=== PATIENT | female | born 1960 | race Caucasian/White ===

== ENCOUNTER 2019-01-01 10:30 | Emergency (ER) | payer OTHER ==
[2019-01-01] MEDS ORDERED: Albuterol/Ipratropium 3.0-0.5 MG/3 ML Neb Soln NEB PRN (11:29)
[2019-01-01] MEDS ORDERED: Dexamethasone 10 MG/ML SDV IV ONE (11:31)
[2019-01-01] MEDS ORDERED: Codeine/Promethazine 10-6.25 MG/5 ML Syrup 5 ML UD Cup PO STA (11:32)
--- NOTE | 2019-01-01 12:40 | EDM.PDOC ---
ED HPI GENERAL MEDICAL PROBLEM - General Chief Complaint: Respiratory Problem Stated Complaint: SEVERE COUGH,CHEST PAIN,NOSE BLEED Time Seen by Provider: 01/01/19 10:58 Chest Pain Score (Numeric/FACES): 6 - Related Data Allergies Allergy/AdvReac Type Severity Reaction Status Date / Time acetaminophen [From Lortab] Allergy Vomiting Verified 01/01/19 10:51 cefaclor [From Ceclor] Allergy Hives Verified 01/01/19 10:51 duloxetine Allergy Agitation Verified 01/01/19 10:51 fluoxetine [From Prozac] Allergy Agitation Verified 01/01/19 10:51 gabapentin Allergy Hives Verified 01/01/19 10:51 hydrocodone [From Lortab] Allergy Vomiting Verified 01/01/19 10:51 meloxicam Allergy Anaphylactic Verified 01/01/19 10:51 Shock oxycodone Allergy Vomiting Verified 01/01/19 10:51 quinine Allergy Hives Verified 01/01/19 10:51 sulfamethoxazole Allergy Hives Verified 01/01/19 10:51 trimethoprim [From Bactrim] Allergy Hives Verified 01/01/19 10:51 hop oils Allergy Anaphylactic Uncoded 01/01/19 10:51 Shock Home Meds: Home Meds ALPRAZolam [Alprazolam] 0.5 mg PO TID PRN 01/01/19 [History] Albuterol Sulfate [Albuterol Sulfate Hfa] 8.5 gm IH Q4HR PRN 5 Days #1 hfa.aer.ad 01/01/19 [Rx] Codeine/Promethazine [Phenergan with Codeine] 5 ml PO Q4HR PRN 7 Days #100 cup 01/01/19 [Rx] Lisinopril 1 tab PO DAILY 01/01/19 [History] Methocarbamol [Robaxin] 1 tab PO ASDIRECTED PRN 01/01/19 [History] Prazosin [Minpress] 1 tab PO BEDTIME PRN 01/01/19 [History] Ranitidine HCl [Zantac] 150 mg PO DAILY 01/01/19 [History] Thyroid,Pork [Wp Thyroid] 1 tab PO DAILY 01/01/19 [History] Vitamin D3/Vitamin K2 (Mk4) [K2 Plus D3 Tablet] 1 tab PO DAILY 01/01/19 [History ] Past Medical History Cardiovascular History: Reports: Hypertension Respiratory History: Reports: Pneumonia, Recurrent, Sleep Apnea Gastrointestinal History: Reports: Other (See Below) Other Gastrointestinal History: Yancey's esophagus Musculoskeletal History: Reports: Arthritis, Back Pain, Chronic, Fibromyalgia, Other (See Below) Other Musculoskeletal History: chronic pain syndrome, cervical spine disorder, carpal tunnel Psychiatric History: Reports: Anxiety Endocrine/Metabolic History: Reports: Hypothyroidism - Past Surgical History Musculoskeletal Surgical History: Reports: Hip Replacement, Knee Replacement Social & Family History - Tobacco Use Smoking Status *Q: Former Smoker Used Tobacco, but Quit: Yes Month/Year Tobacco Last Used: 27 years ago - Caffeine Use Caffeine Use: Reports: None - Recreational Drug Use Recreational Drug Use: No ED ROS GENERAL - Review of Systems Review Of Systems: See Below Constitutional: Reports: Fever, Chills HEENT: Reports: Glasses Respiratory: Reports: Wheezing, Cough Cardiovascular: Denies: Chest Pain Endocrine: Reports: Fatigue GI/Abdominal: Reports: No Symptoms : Reports: No Symptoms Musculoskeletal: Reports: No Symptoms Skin: Reports: No Symptoms Neurological: Reports: No Symptoms, Change in Speech Hematologic/Lymphatic: Reports: No Symptoms ED EXAM, GENERAL - Physical Exam Exam: See Below General Appearance: Alert, WD/WN, No Apparent Distress Ears: Normal External Exam, Normal Canal, Hearing Grossly Normal, Normal TMs Throat/Mouth: Normal Inspection, Normal Lips, Normal Teeth, Normal Gums, Normal Voice, No Airway Compromise, Inflammation Neck: Normal Inspection, Supple, Non-Tender, Lymphadenopathy (R) Course - Vital Signs Last Recorded V/S: Last Vital Signs Temp 98.4 F 01/01/19 10:46 Pulse 85 01/01/19 10:46 Resp 20 01/01/19 10:46 BP 131/71 01/01/19 10:46 Pulse Ox 97 01/01/19 11:34 - Orders/Labs/Meds Orders: Active Orders 24 hr Category Date Time Status RT Aerosol Therapy [RC] ASDIRECTED Care 01/01/19 11:29 Active Chest 2V [CR] Stat Exams 01/01/19 11:24 Taken CULTURE STREP A CONFIRMATION [RM] Stat Lab 01/01/19 11:00 Results STREP SCRN A RAPID W CULT CONF [RM] Stat Lab 01/01/19 11:00 Results Albuterol/Ipratropium [DuoNeb 3.0-0.5 MG/3 ML] Med 01/01/19 11:29 Active 3 ml NEB Q2H PRN Medication Orders Albuterol/Ipratropium (Duoneb 3.0-0.5 Mg/3 Ml) 3 ml NEB Q2H PRN PRN Reason: Cough Stop: 01/01/19 22:00 Last Admin: 01/01/19 11:34 Dose: 3 ml Labs: Laboratory Tests 01/01/19 01/01/19 Range/Units 11:35 11:35 WBC 7.88 (3.98-10.04) K/mm3 RBC 4.20 (3.98-5.22) M/mm3 Hgb 12.0 (11.2-15.7) gm/L Hct 36.1 (34.1-44.9) % MCV 86.0 (79.4-94.8) fl MCH 28.6 (25.6-32.2) pg MCHC 33.2 (32.2-35.5) g/dl RDW Std Deviation 41.9 (36.4-46.3) fL Plt Count 141 L (182-369) K/mm3 MPV 10.6 (9.4-12.3) fl Neut % (Auto) 73.0 H (34.0-71.1) % Lymph % (Auto) 18.8 L (19.3-51.7) % [place] % (Auto) 7.7 (4.7-12.5) % Eos % (Auto) 0.4 L (0.7-5.8) Baso % (Auto) 0.1 (0.1-1.2) % Neut # (Auto) 5.75 (1.56-6.13) K/mm3 Lymph # (Auto) 1.48 (1.18-3.74) K/mm3 [place] # (Auto) 0.61 H (0.24-0.36) K/mm3 Eos # (Auto) 0.03 L (0.04-0.36) K/mm3 Baso # (Auto) 0.01 (0.01-0.08) K/mm3 Sodium 140 (136-145) mEq/L Potassium 4.5 (3.5-5.1) mEq/L Chloride 107 (98-107) mEq/L Carbon Dioxide 24 (21-32) mEq/L Anion Gap 13.5 (5-15) BUN 13 (7-18) mg/dL Creatinine 1.0 (0.55-1.02) mg/dL Est Cr Clr Drug Dosing 67.93 mL/min Estimated GFR (MDRD) 57 (>60) mL/min BUN/Creatinine Ratio 13.0 L (14-18) Glucose 130 H (74-106) mg/dL Calcium 9.1 (8.5-10.1) mg/dL Total Bilirubin 0.9 (0.2-1.0) mg/dL AST 20 (15-37) U/L ALT 38 (14-59) U/L Alkaline Phosphatase 75 (46-116) U/L Total Protein 6.7 (6.4-8.2) g/dl Albumin 3.4 (3.4-5.0) g/dl Globulin 3.3 gm/dL Albumin/Globulin Ratio 1.0 (1-2) Meds: Medications Generic Name Dose Route Start Last Admin Trade Name Freq PRN Reason Stop Dose Admin Albuterol/Ipratropium 3 ml 01/01/19 11:29 01/01/19 11:34 Duoneb 3.0-0.5 Mg/3 Ml NEB 01/01/19 22:00 3 ml Q2H PRN Administration Cough Discontinued Medications Generic Name Dose Route Start Last Admin Trade Name Freq PRN Reason Stop Dose Admin Dexamethasone 10 mg 01/01/19 11:31 01/01/19 11:51 Dexamethasone IV 01/01/19 11:32 10 mg ONETIME ONE Administration Promethazine HCl/Codeine 10 ml 01/01/19 11:32 01/01/19 11:53 Phenergan With Codeine PO 01/01/19 11:33 10 ml Q4HR STA Administration - Re-Assessments/Exams Free Text/Narrative Re-Assessment/Exam: 01/01/19 12:00 WBC 7.88 RBC 4.2 serial hemoglobin and hematocrit 12 and 36.1 platelet count 141 strep screen negative 01/01/19 12:40 Chest x-ray was unremarkable. She reports feeling better after breathing treatment and cough syrup. Breath sounds are diminished no wheezing noted. I will discharge home with Albuterol and Phenergan with Codeine for cough. I instructed her not to take cough medication and drink, drive or operate machinery. I instructed her to follow up with her PCP. Instructed to return to the ER for any new or acute worsening symptoms. She verbalized understanding and is comfortable with plan for discharge. Departure - Departure Time of Disposition: 12:43 Disposition: Admitted As Inpatient 68 Condition: Good Clinical Impression: Bronchitis - Discharge Information *PRESCRIPTION DRUG MONITORING PROGRAM REVIEWED*: Not Applicable *COPY OF PRESCRIPTION DRUG MONITORING REPORT IN PATIENT SABINE: Not Applicable Prescriptions: Albuterol Sulfate [Albuterol Sulfate Hfa] 8.5 gm IH Q4HR PRN 5 Days #1 hfa.aer.ad PRN Reason: Cough Codeine/Promethazine [Phenergan with Codeine] 5 ml PO Q4HR PRN 7 Days #100 cup PRN Reason: Cough Instructions: Acute Bronchitis, Adult, [id number] Referrals: PCP,Not In Area [Primary Care Provider] - Forms: ED Department Discharge - My Orders Last 24 Hours: My Active Orders 01/01/19 11:00 CULTURE STREP A CONFIRMATION [RM] Stat STREP SCRN A RAPID W CULT CONF [RM] Stat 01/01/19 11:24 Chest 2V [CR] Stat 01/01/19 11:29 RT Aerosol Therapy [RC] ASDIRECTED Albuterol/Ipratropium [DuoNeb 3.0-0.5 MG/3 ML] 3 ml NEB Q2H PRN - Assessment/Plan Last 24 Hours: My Active Orders 01/01/19 11:00 CULTURE STREP A CONFIRMATION [RM] Stat STREP SCRN A RAPID W CULT CONF [RM] Stat 01/01/19 11:24 Chest 2V [CR] Stat 01/01/19 11:29 RT Aerosol Therapy [RC] ASDIRECTED Albuterol/Ipratropium [DuoNeb 3.0-0.5 MG/3 ML] 3 ml NEB Q2H PRN
--- NOTE | 2019-01-03 10:12 | CR ---
Chest: Two views of the chest were obtained. Comparison: No prior chest x-ray. Heart size and mediastinum are normal. Lungs are clear without acute parenchymal change. Bony structures are unremarkable. Several surgical clips are seen overlying the right lower chest believed to be within the right breast. Impression: 1. Nothing acute is appreciated on two-view chest x-ray. Diagnostic code #2
== END 2019-01-01 13:22 | disposition home or self-care (01) ==
LOC: JD.ED 10:30
DX: J40 Bronchitis, not specified as acute or chronic (principal); I10 Essential (primary) hypertension; F41.9 Anxiety disorder, unspecified; E03.9 Hypothyroidism, unspecified; Z87.891 Personal history of nicotine dependence; Z88.1 Allergy status to other antibiotic agents; Z88.8 Allergy status to other drugs, medicaments and biological substances; Z88.5 Allergy status to narcotic agent; Z79.899 Other long term (current) drug therapy
CPT/HCPCS: 36415; 71046; 80053; 85025; 87081; 87430; 94640; 96374; 99284; A9270; J1100; 99283; J7620-GY